=== PATIENT | female | born 1985 ===

== ENCOUNTER → 2020-08-06 09:49 | Outpatient (REF) | payer BC, SELFPAY | LOC: ANHLAB 09:49 | PROVIDERS: Visit Provider Nurse Practitioner | DX: D23.9 Other benign neoplasm of skin, unspecified (principal) | CPT/HCPCS: 88305 ==

== ENCOUNTER → 2021-06-15 14:22 | Outpatient (REF) | payer BC, SELFPAY | LOC: ANHLAB 14:22 | PROVIDERS: Visit Provider Nurse Practitioner | DX: D23.62 Other benign neoplasm of skin of left upper limb, including shoulder (principal); D23.61 Other benign neoplasm of skin of right upper limb, including shoulder | CPT/HCPCS: 88305 ==